=== PATIENT | male | born 1945 | race Caucasian/White ===

== ENCOUNTER → 2018-08-29 18:51 | Outpatient (REF) | payer OTHER, SELFPAY ==
[2018-08-29 19:25] LABS: Cholesterol 192 mg/dL (140-199); HDL Cholesterol 32 mg/dL (40-60); LDL Cholesterol Calculated 112 mg/dL (<100); Triglycerides 239 mg/dL (35-150)
== END ==
LOC: LAB 18:51
PROVIDERS: Visit Provider Family Medicine Geriatric Medicine
DX: E78.5 Hyperlipidemia, unspecified (principal)
CPT/HCPCS: 36415; 80061

== ENCOUNTER → 2024-05-24 09:57 | Outpatient (CLI) | payer MEDICARE, SELFPAY ==
--- NOTE | 2024-05-24 10:00 | DI.MRI.S_ITS ---
PROCEDURE: MR LOWER LEG LT WO/W CON INDICATIONS: BONE LESION TECHNIQUE: Noncontrast coronal T1 spin echo and STIR, sagittal T1 spin echo with fat saturation and STIR, axial T1 spin echo and T2 fast spin echo with fat saturation. After the administration of contrast, axial/sagittal/coronal T1 spin echo with fat saturation through the left leg. COMPARISON: [facility], MR, HIP WITHOUT CONTRAST, 09/13/2017, 14:30. FINDINGS: Image quality: Excellent. Bones: Chronic deformity of the left distal fibular diaphysis, which may be secondary to healed fracture. No marrow replacing lesion in the left leg. Soft tissues: Small left knee effusion. Small popliteal cyst. Moderate fatty infiltration of the posterior compartment of the left leg, without muscle edema. IMPRESSION: 1. No suspicious osseous or soft tissue lesion in the left leg. 2. Moderate fatty atrophy of the posterior compartment of the left leg, nonspecific. Dictated by: Tejal Simon M.D. on 05/24/2024 at 16:17 Approved by: Tejal Simon M.D. on 05/24/2024 at 16:26
== END ==
PROVIDERS: Referring Provider Family Medicine; Visit Provider Family Medicine
DX: M89.9 Disorder of bone, unspecified (principal); M25.462 Effusion, left knee; M71.22 Synovial cyst of popliteal space [Baker], left knee; M21.962 Unspecified acquired deformity of left lower leg
CPT/HCPCS: 73720; A9579